=== PATIENT | female | born 1970 | race American Indian/Alaskan Native ===

== ENCOUNTER 2018-10-03 07:50 | Outpatient (CLI) | payer OTHER ==
--- NOTE | 2018-10-03 15:05 | Mammography Report ---
BILATERAL DIGITAL SCREENING MAMMOGRAM with CAD: 10/03/18 07:50:00 CLINICAL: Routine screening. COMPARISON:06/19/15 and 06/18/14 FINDINGS: The breasts are heterogeneously dense, which may obscure small masses. No mass, architectural distortion or suspicious calcifications. IMPRESSION: No mammographic evidence of malignancy. BI-RADS CATEGORY: 1 - - Negative RECOMMENDATION: Routine mammographic screening in one year. COMMENT: Patient follow-up letters are generated by our [employer] application.
== END 2018-10-03 07:51 | disposition home or self-care (01) ==
LOC: MAMMO 07:50
PROVIDERS: ATTEND Specialist
DX: Z12.31 Encounter for screening mammogram for malignant neoplasm of breast (principal)
CPT/HCPCS: 77067

== ENCOUNTER 2019-04-14 10:22 | Emergency (ER) | payer OTHER ==
[2019-04-14 10:40] VITALS: BP 146/82
[2019-04-14 12:26] LABS: Red Blood Count 3.92 M/mm3 (3.65-5.03)
[2019-04-14 12:27] LABS: Basophils % (Auto) 0.6 % (0.0-1.8); Eosinophils # (Auto) 0.3 K/mm3 (0.0-0.4); Eosinophils % (Auto) 5.4 % (0.0-4.3); Hematocrit 35.2 % (30.3-42.9); Hemoglobin 11.6 gm/dl (10.1-14.3); Lymphocytes # (Auto) 1.3 K/mm3 (1.2-5.4); Lymphocytes % (Auto) 22.7 % (13.4-35.0); Mean Corpuscular HGB Conc 33 % (30-34); Mean Corpuscular Volume 90 fl (79-97); Monocytes # (Auto) 0.3 K/mm3 (0.0-0.8); Monocytes % (Auto) 5.9 % (0.0-7.3); Platelet Count 233 K/mm3 (140-440)
[2019-04-14 12:29] LABS: BUN/Creatinine Ratio 13; Blood Urea Nitrogen 13 mg/dL (7-17); Hemolysis Index 94; INR 0.99 (0.87-1.13); Partial Thromboplastin Time 26.7 Sec. (24.2-36.6)
[2019-04-14] MEDS ORDERED: ELIQUIS PO ONE (13:06)
--- NOTE | 2019-04-14 13:29 | Emergency Department Report ---
ED Extremity Problem HPI - General Chief complaint: Extremity Injury, Lower Stated complaint: RT LEG BLOOD CLOT/PAIN Time Seen by Provider: 04/14/19 11:35 Source: patient Mode of arrival: Ambulatory Limitations: No Limitations - History of Present Illness Initial comments: Patient is a 48-year-old ethnic female is presented with right sided lower extremity pain for approximately 1 month. Patient states that for the past month she had progressively worsening pain behind the right knee. She denies chest pain shortness of breath fevers or chills or direct trauma. Patient states that she 2 months ago she did have a day where she had to travel on se veral planes over 6 hour time span. Patient states symptoms started after this. Patient denies being a tobacco user or having history of cancer. - Related Data Previous Rx's Medication Instructions Recorded Last Taken Type Apixaban [Eliquis starter pack] 5 mg PO BID 30 Days tab.ds.pk 04/14/19 Unknown Rx traMADol [Ultram] 50 mg PO Q6HR PRN #12 tablet 04/14/19 Unknown Rx Allergies Allergy/AdvReac Type Severity Reaction Status Date / Time Penicillins Allergy Unknown Unverified 07/04/14 15:15 ED Review of Systems ROS: Stated complaint: RT LEG BLOOD CLOT/PAIN Other details as noted in HPI Comment: All other systems reviewed and negative ED Past Medical Hx - Past Medical History Previous Medical History?: Yes Hx Deep Vein Thrombosis: Yes - Surgical History Past Surgical History?: No - Social History Smoking Status: Never Smoker Substance Use Type: None - Medications Home Medications: Home Medications Medication Instructions Recorded Confirmed Last Taken Type Apixaban [Eliquis starter pack] 5 mg PO BID 30 Days tab.ds.pk 04/14/19 Unknown Rx traMADol [Ultram] 50 mg PO Q6HR PRN #12 tablet 04/14/19 Unknown Rx ED Physical Exam - General Limitations: No Limitations General appearance: alert, in no apparent distress - Head Head exam: Present: atraumatic, normocephalic - Eye Eye exam: Present: normal appearance - ENT ENT exam: Present: mucous membranes moist - Neck Neck exam: Present: normal inspection - Respiratory Respiratory exam: Present: normal lung sounds bilaterally. Absent: respiratory distress, wheezes, rales, rhonchi, chest wall tenderness - Cardiovascular Cardiovascular Exam: Present: regular rate, normal rhythm, normal heart sounds. Absent: systolic murmur, diastolic murmur, rubs, gallop - GI/Abdominal GI/Abdominal exam: Present: soft, normal bowel sounds. Absent: distended, tenderness - Extremities Exam Extremities exam: Present: normal inspection, calf tenderness (right-sided with mild swelling) - Back Exam Back exam: Present: normal inspection - Neurological Exam Neurological exam: Present: alert, oriented X3 - Psychiatric Psychiatric exam: Present: normal affect, normal mood - Skin Skin exam: Present: warm, dry, intact, normal color. Absent: rash ED Course Vital Signs 04/14/19 10:37 Temperature 98.1 F Pulse Rate 89 Respiratory 18 Rate Blood Pressure 146/82 O2 Sat by Pulse 98 Oximetry ED Medical Decision Making - Lab Data Result diagrams: 04/14/19 12:07 04/14/19 12:07 - Medical Decision Making Patient had a outpatient ultrasound performed prior to arrival. I was able to review the findings with our radiologist extrusion bender today. 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 PT started on Eliquis and the patient will be discharged home with follow-up with her primary care physician. Critical care attestation.: If time is entered above; I have spent that time in minutes in the direct care of this critically ill patient, excluding procedure time. ED Disposition Clinical Impression: DVT (deep venous thrombosis) Qualifiers: DVT location: lower extremity Affected thrombotic vein of extremity: popliteal Chronicity: unspecified Laterality: right Qualified Code(s): I82.431 - Acute embolism and thrombosis of right popliteal vein Disposition: - TO HOME OR SELFCARE Is pt being admited?: No Does the pt Need Aspirin: No Condition: Stable Prescriptions: Apixaban [Eliquis starter pack] 5 mg PO BID 30 Days tab.ds.pk traMADol [Ultram] 50 mg PO Q6HR PRN #12 tablet PRN Reason: Pain Referrals: PRIMARY CARE, [Primary Care Provider] - 3-5 Days Time of Disposition: 13:29
== END 2019-04-14 13:56 | disposition home or self-care (01) ==
LOC: ED 10:22
DX: I82.431 Acute embolism and thrombosis of right popliteal vein (principal); Z88.0 Allergy status to penicillin; Z79.899 Other long term (current) drug therapy
CPT/HCPCS: 36415; 80048; 85025; 85610; 85730; 99283

== ENCOUNTER 2021-03-19 10:40 | Outpatient (CLI) | payer OTHER ==
--- NOTE | 2021-03-19 12:43 | Mammography Report ---
DIGITAL SCREENING MAMMOGRAM WITH CAD, 03/19/2021 CLINICAL INFORMATION / INDICATION: Routine screening mammography. SCREENING MAMMOGRAM TECHNIQUE: Digital bilateral 2D mammography was obtained in the craniocaudal and mediolateral obliqu e projections. This examination was interpreted with the benefit of Computer-Aided Detection analysis . COMPARISON: 05/17/2013 through 10/03/2018. FINDINGS: Breast Density: The breasts are heterogeneously dense, which may obscure small masses. No dominant mass, suspicious calcifications, or architectural distortion in either breast. IMPRESSION: No mammographic evidence of malignancy. Follow up recommendation: Routine yearly BI-RADS Category 1: Negative. A "normal" or negative report should not discourage follow up or biopsy of a clinically significant f inding. A written summary of these findings will be mailed to the patient. The patient will be entered into a mammography reporting system which will generate a reminder letter for the patient's next appointmen t at the appropriate interval. The [employer] recommends yearly mammograms starting at age 40 and continuing as l shawn as a woman is in good health. Breast MRI is recommended for women with an approximate 20-25% or greater lifetime risk of breast cancer, including women with a strong family history of breast or ova allyson cancer or who have been treated for Hodgkin's disease. Signer Name: Bob Quintero MD Signed: 03/19/2021 12:39 PM Workstation Name: [id number]
== END 2021-03-19 10:41 | disposition home or self-care (01) ==
LOC: MAMMO 10:40
PROVIDERS: ATTEND Specialist
DX: Z12.31 Encounter for screening mammogram for malignant neoplasm of breast (principal); N64.89 Other specified disorders of breast
CPT/HCPCS: 77067